=== PATIENT | female | born 1995 | race Caucasian/White ===

== ENCOUNTER 2017-12-10 18:20 | Emergency (ER) | payer MEDICAID, OTHER | END 2017-12-10 22:27 | disposition home or self-care (01) | LOC: FTE 18:20 | DX: N64.4 Mastodynia (principal); Z85.3 Personal history of malignant neoplasm of breast | CPT/HCPCS: 76641; 76641-50; 81025; 99284-25 ==

== ENCOUNTER 2018-08-12 09:10 | Outpatient (CLI) | payer OTHER ==
[2018-08-12 09:52] LABS: ADD MAN DIFF? NO
[2018-08-12 09:57] LABS: BASOPHILS % 0.3 % (0.0-2.0); EOSINOPHILS % 0.4 % (0.0-7.0); HEMATOCRIT 34.2 % (37.0-47.0); HEMOGLOBIN 11.5 g/dl (12.0-16.0); LYMPHOCYTES # 1.9 10^3/ul (0.8-2.9); LYMPHOCYTES % 18.3 % (18.0-55.0); MEAN CORPUSCULAR HEMOGLOBIN 31.4 pg (29.0-33.0); MEAN CORPUSCULAR HGB CONC 33.6 g/dl (32.0-37.0); MEAN CORPUSCULAR VOLUME 93.4 fl (72.0-104.0); MEAN PLATELET VOLUME 11.3 fl (7.4-10.4); MONOCYTE # 0.6 10^3/ul (0.3-0.9); MONOCYTES % 5.7 % (0.0-13.0); NEUTROPHIL # 7.9 10^3/ul (1.6-7.5); PLATELET COUNT 291 10^3/UL (140-415); RED BLOOD COUNT 3.66 10^6/ul (4.20-5.40); RED CELL DISTRIBUTION WIDTH 14.4 % (11.5-14.5)
[2018-08-12 09:57] LABS: WHITE BLOOD COUNT 10.5 10^3/ul (4.8-10.8)
[2018-08-12 10:09] LABS: ADD UMIC YES; UR ASCORBIC ACID NEGATIVE (NEGATIVE); UR BACTERIA MODERATE /HPF (NONE SEEN); UR BILIRUBIN (Dip) NEGATIVE (NEGATIVE); UR BLOOD (Dip) NEGATIVE (NEGATIVE); UR CLARITY CLOUDY (CLEAR); UR COLOR YELLOW (YELLOW); UR GLUCOSE (Dip) NEGATIVE (NEGATIVE); UR KETONES (Dip) NEGATIVE (NEGATIVE); UR LEUKOCYTE ESTERASE (Dip) 3+ Leu/ul (NEGATIVE); UR NITRITE (Dip) NEGATIVE (NEGATIVE); UR RBC 2 /HPF (0-5); UR RENAL EPITHELIAL CELL FEW /HPF (NONE SEEN); UR SPECIFIC GRAVITY (Dip) 1.016 (1.003-1.030); UR SQUAMOUS EPITHELIAL CELL MANY /HPF (FEW); UR TOTAL PROTEIN (Dip) NEGATIVE (NEGATIVE); UR UROBILINOGEN (Dip) NEGATIVE (NEGATIVE); UR WBC 55 /HPF (0-5)
[2018-08-12 10:16] LABS: ALANINE AMINOTRANSFERASE 16 IU/L (13-69); ALBUMIN 3.4 g/dl (3.3-4.9); ALBUMIN/GLOBULIN RATIO 0.97; ALKALINE PHOSPHATASE 283 IU/L (42-121); ANION GAP 8 (5-13); ASPARTATE AMINO TRANSFERASE 19 IU/L (15-46); BILIRUBIN,INDIRECT 0.1 mg/dl (0-1.1); BILIRUBIN,TOTAL 0.1 mg/dl (0.2-1.3); BLOOD UREA NITROGEN 11 mg/dl (7-20); CALCIUM 9.1 mg/dl (8.4-10.2); CARBON DIOXIDE 21 mmol/L (21-31); CHLORIDE 109 mmol/L (97-110); CREATININE 0.52 mg/dl (0.44-1.00); Estimated GFR > 60 mL/min (>60); GLUCOSE 100 mg/dl (70-220); SODIUM 138 mmol/L (135-144); TOTAL PROTEIN 6.9 g/dl (6.1-8.1)
[2018-08-12 10:18] LABS: URIC ACID 4.3 mg/dl (3.1-7.9)
[2018-08-12] MEDS: CEFTRIAXONE 1 GM INJ IM (12:39)
== END 2018-08-12 12:50 | disposition home or self-care (01) ==
LOC: OBT 09:10 → L-D 09:10 → OBT 12:50
DX: O26.893 Other specified pregnancy related conditions, third trimester (principal); R03.0 Elevated blood-pressure reading, without diagnosis of hypertension; O23.43 Unspecified infection of urinary tract in pregnancy, third trimester; Z3A.38 38 weeks gestation of pregnancy
CPT/HCPCS: 76818; 80053; 81001; 84560; 85025; 87086; 96372

== ENCOUNTER 2018-08-19 14:13 | Inpatient (IN) | payer OTHER ==
[2018-08-19] MEDS ORDERED: MISOPROSTOL 200 MCG TAB PR (16:30)
[2018-08-19] MEDS ORDERED: LIDOCAINE 1% (MPF) 30 ML INJ INJ (16:30)
[2018-08-19] MEDS ORDERED: CARBOPROST 250 MCG INJ IM (16:30)
[2018-08-19] MEDS ORDERED: OXYTOCIN 30 UNITS/LR 500 ML IV ×3 (16:30)
[2018-08-19] MEDS ORDERED: IBUPROFEN 600 MG TAB PO (16:30)
[2018-08-19] MEDS ORDERED: BUTORPHANOL 2 MG INJ IV (16:30)
[2018-08-19] MEDS: LACTATED RINGER'S 1,000 ML IV ×2 (17:11→23:10)
[2018-08-19 17:40] LABS: ADD MAN DIFF? NO
[2018-08-19 17:51] LABS: WHITE BLOOD COUNT 10.5 10^3/ul (4.8-10.8)
[2018-08-19 17:51] LABS: BASOPHILS % 0.3 % (0.0-2.0); EOSINOPHILS % 0.4 % (0.0-7.0); HEMATOCRIT 34.4 % (37.0-47.0); HEMOGLOBIN 11.6 g/dl (12.0-16.0); LYMPHOCYTES # 2.1 10^3/ul (0.8-2.9); LYMPHOCYTES % 20.4 % (18.0-55.0); MEAN CORPUSCULAR HEMOGLOBIN 31.4 pg (29.0-33.0); MEAN CORPUSCULAR HGB CONC 33.7 g/dl (32.0-37.0); MEAN CORPUSCULAR VOLUME 93.2 fl (72.0-104.0); MEAN PLATELET VOLUME 11.6 fl (7.4-10.4); MONOCYTE # 0.6 10^3/ul (0.3-0.9); NEUTROPHIL # 7.6 10^3/ul (1.6-7.5); NEUTROPHILS % 72.3 % (30.0-74.0); NUCLEATED RED BLOOD CELLS% 0.2 /100WBC (0.0-0.0); PLATELET COUNT 286 10^3/UL (140-415); RED BLOOD COUNT 3.69 10^6/ul (4.20-5.40); RED CELL DISTRIBUTION WIDTH 14.8 % (11.5-14.5)
[2018-08-19 18:09] LABS: PROTIME 12.3 Sec (11.9-14.9)
[2018-08-19 18:10] LABS: PARTIAL THROMBOPLASTIN TIME 29.2 Sec (23.0-35.0)
[2018-08-19] MEDS: OXYTOCIN 30 UNITS/LR 500 ML IV (20:35)
[2018-08-19] MEDS ORDERED: HYDROmorphONE 0.5 MG/0.5 ML SYG IV ×2 (23:30)
[2018-08-19] MEDS ORDERED: ONDANSETRON 4 MG INJ IV (23:30)
[2018-08-19] MEDS ORDERED: DIPHENHYDRAMINE 50 MG INJ IV (23:30)
[2018-08-19] MEDS ORDERED: KETOROLAC 30 MG INJ IV (23:30)
[2018-08-19] MEDS ORDERED: NALOXONE (0.4 MG/ML) INJ IV (23:30)
[2018-08-20] MEDS: FENTAnyl 2MCG/ML-ROPIV 0.2% 100 ML BAG EPI (00:34)
[2018-08-20] MEDS: LACTATED RINGER'S 1,000 ML IV ×3 (01:40→14:05)
[2018-08-20] MEDS: METHYLERGONOVINE 0.2 MG INJ IM (09:11)
[2018-08-20] MEDS: OXYTOCIN 30 UNITS/LR 500 ML IV (09:28)
[2018-08-20] MEDS ORDERED: WITCH HAZEL/GLYCERIN PAD PR (09:30)
[2018-08-20] MEDS ORDERED: LANOLIN HPA 1 PKT TOP (09:30)
[2018-08-20] MEDS ORDERED: BENZOCAINE 20% 56 ML SPRAY TOP (09:30)
[2018-08-20] MEDS ORDERED: NACL 0.9% 3 ML SYG IV (09:30)
[2018-08-20] MEDS ORDERED: MISOPROSTOL 200 MCG TAB PR (09:30)
[2018-08-20] MEDS ORDERED: ONDANSETRON 4 MG INJ IV (09:30)
[2018-08-20] MEDS ORDERED: METHYLERGONOVINE 0.2 MG INJ IM (09:30)
[2018-08-20] MEDS ORDERED: OXYTOCIN 30 UNITS/LR 500 ML IV (09:30)
[2018-08-20] MEDS ORDERED: OXYCODONE/ASPIRIN (4.88/325) TAB PO (09:30)
[2018-08-20] MEDS ORDERED: CARBOPROST 250 MCG INJ IM (09:30)
[2018-08-20] MEDS ORDERED: IBUPROFEN 600 MG TAB PO (12:00)
[2018-08-20] MEDS: IBUPROFEN 600 MG TAB PO ×2 (12:19→23:42)
[2018-08-20] MEDS: OXYCODONE/ASPIRIN (4.88/325) TAB PO (13:52)
[2018-08-20 17:31] LABS: ADD UMIC YES; UR ASCORBIC ACID NEGATIVE (NEGATIVE); UR BILIRUBIN (Dip) NEGATIVE (NEGATIVE); UR BLOOD (Dip) 2+ mg/dL (NEGATIVE); UR CLARITY CLEAR (CLEAR); UR COLOR STRAW (YELLOW); UR GLUCOSE (Dip) NEGATIVE (NEGATIVE); UR KETONES (Dip) NEGATIVE (NEGATIVE); UR LEUKOCYTE ESTERASE (Dip) TRACE Leu/ul (NEGATIVE); UR NITRITE (Dip) NEGATIVE (NEGATIVE); UR RBC 1 /HPF (0-5); UR SPECIFIC GRAVITY (Dip) 1.003 (1.003-1.030); UR TOTAL PROTEIN (Dip) NEGATIVE (NEGATIVE); UR UROBILINOGEN (Dip) NEGATIVE (NEGATIVE); UR WBC 2 /HPF (0-5)
[2018-08-20 20:01] LABS: RAPID PLASMA REAGIN NONREACTIVE (NR)
[2018-08-20] MEDS: SENNA/DOCUSATE NA (8.6MG/50MG) TAB PO (20:44)
[2018-08-21] MEDS: IBUPROFEN 600 MG TAB PO (05:43)
[2018-08-21 07:41] LABS: ADD MAN DIFF? NO
[2018-08-21 07:51] LABS: BASOPHILS % 0.3 % (0.0-2.0); EOSINOPHILS # 0.1 10^3/ul (0.0-0.5); EOSINOPHILS % 0.5 % (0.0-7.0); HEMATOCRIT 30.2 % (37.0-47.0); LYMPHOCYTES # 2.9 10^3/ul (0.8-2.9); LYMPHOCYTES % 27.5 % (18.0-55.0); MEAN CORPUSCULAR HEMOGLOBIN 31.2 pg (29.0-33.0); MEAN CORPUSCULAR HGB CONC 33.1 g/dl (32.0-37.0); MEAN CORPUSCULAR VOLUME 94.1 fl (72.0-104.0); MEAN PLATELET VOLUME 11.5 fl (7.4-10.4); MONOCYTE # 0.7 10^3/ul (0.3-0.9); MONOCYTES % 6.2 % (0.0-13.0); PLATELET COUNT 205 10^3/UL (140-415); RED BLOOD COUNT 3.21 10^6/ul (4.20-5.40)
[2018-08-21 07:51] LABS: WHITE BLOOD COUNT 10.7 10^3/ul (4.8-10.8)
[2018-08-21] MEDS: SENNA/DOCUSATE NA (8.6MG/50MG) TAB PO (09:00)
[2018-08-21] MEDS: CEPHALEXIN 500 MG CAP PO (12:03)
[2018-08-21] MEDS ORDERED: CEPHALEXIN 500 MG CAP PO (14:00)
[2018-08-22] MEDS ORDERED: MEASLES,MUMPS,RUBELLA VACCINE INJ SC* (09:00)
== END 2018-08-21 16:00 | disposition home or self-care (01) | DRG 807 ==
LOC: OBT 14:13 → L-D 14:13 → PP1 08-20 11:05 → OBT 15:55 → L-D 15:55
PROVIDERS: Obstetrics & Gynecology
PROC: 10E0XZZ Delivery of Products of Conception, External Approach (ICD-10-PCS; principal; 2018-08-20)
PROC: 0HQ9XZZ Repair Perineum Skin, External Approach (ICD-10-PCS; 2018-08-20)
DX: O99.214 Obesity complicating childbirth (principal); Z37.0 Single live birth; E66.01 Morbid (severe) obesity due to excess calories; O70.0 First degree perineal laceration during delivery; Z3A.39 39 weeks gestation of pregnancy
CPT/HCPCS: 62322; 76815; 76818; 81001; 85025; 85610; 85730; 86592; 86850; 86900; 86901; 87086; 99464